=== PATIENT | female | born 1965 | race African-American/Black ===

== ENCOUNTER 2017-03-04 10:44 | Emergency (ER) | payer OTHER ==
[~2017-03-04 10:44] MED LIST: MOTI25CH PO; ONDA1TAB16 PO
[2017-03-04 10:45] VITALS: BP 153/87; PULSE 82; RESP 17; TEMP 98.3; O2SAT 97
--- NOTE | 2017-03-04 11:38 | PD ---
HPI Chief Complaint: Skin Problem Time Seen by Provider: 11:38 Travel History International Travel<30 days: No Contact w/Intl Traveler<30days: No Traveled to known affect area: No History of Present Illness HPI 52 YO female is the ED for evaluation of possible allergic reaction. Patient underwent breast implant exchange at [facility] [place] last week. She states that she is having blistering and irritation in the areas where she is taped. She denies fevers, chills, nausea, vomiting. She has follow up with her surgeon on 04/08. PFSH Past Medical History Tubal Ligation: Yes Social History Alcohol Use: No Tobacco Use: No Substance Use: No Allergies-Medications (Allergen,Severity, Reaction): Coded Allergies: Penicillin (Verified Allergy, Severe, Shortness of Breath, 10/13/15) Pineapple (Verified Allergy, Severe, 03/04/17) Influenza Virus Vaccine (Verified Allergy, Unknown, HIVES, 03/04/17) Reported Meds & Prescriptions Reported Meds & Active Scripts Active Reported Amoxicillin 125 Mg Chew 125 Mg CHEW TID Oxycodone-Acetaminophen 5-325 mg Tab 1 Tab PO Q4H PRN Review of Systems Except as stated in HPI: all other systems reviewed are Neg Physical Exam Narrative GENERAL: Well-nourished, well-developed black female in no acute distress. SKIN: Focused skin assessment warm/dry. There is a bulky dressing over the bilateral breasts. There are several adhesive strips which were removed. There is mild irritation under the adhesive. There are one or 2 subcentimeter blisters without signs of infection. There are 2 approximate 3 cm incisions in the from mammary fold. Well healing without drainage or signs of infection. HEAD: Normocephalic. EYES: No scleral icterus. No injection or drainage. NECK: Supple, trachea midline. No JVD or lymphadenopathy. CARDIOVASCULAR: Regular rate and rhythm without murmurs, gallops, or rubs. RESPIRATORY: Breath sounds equal bilaterally. No accessory muscle use. GASTROINTESTINAL: Abdomen soft, non-tender, nondistended. MUSCULOSKELETAL: No cyanosis, or edema. BACK: Nontender without obvious deformity. No CVA tenderness. Data Data Last Documented VS Vital Signs Date Time Temp Pulse Resp B/P Pulse Ox O2 Delivery O2 Flow Rate FiO2 03/04/17 10:45 98.3 82 17 153/87 97 MDM Medical Decision Making Medical Screen Exam Complete: Yes Emergency Medical Condition: Yes Differential Diagnosis adhesive allergy versus wound recheck versus post operative complication versus other Narrative Course 52 YO female is the ED for evaluation of possible allergic reaction. Patient underwent breast implant exchange at the [facility] in [place] last week. Complains of irritation in the areas where she is taped. She denies fevers, chills, nausea, vomiting. Follow up scheduled on 04/08. Vitals reviewed. Physical exam reveals a nontoxic female in no acute distress. She did have a very bulky dressing underneath the breast with Too wrap. There was extensive taping of the wound which was removed. There are absorbent adhesive dressings over the inframammary incisions which were left in place. I did check the wound which is well healing with no signs of irritation to that adhesive. The excess adhesive was cleaned out the patient's skin. A bulky dressing with compressive wraps was reapplied. Special care was taken to ensure that the implants were compressed towards the midline as the patient states that she had lateral pockets that the surgeon was attempting to heal. Patient was instructed to avoid adhesives, we discussed wound care of the small blisters. She is stable and discharged for follow-up with her surgeon. 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 Keep blisters clean and covered. Apply small amount of Neosporin ointment if desired. Follow-up with the general surgeon on Sunday as planned. Return to the ED for any urgent or emergent medical condition. Disposition: 01 DISCHARGE HOME Condition: Stable Parvin Black Mar 04, 2017 11:38
[2017-03-04] MEDS ORDERED: OXYC1TAB63 PO (11:40)
[2017-03-04] MEDS ORDERED: AMOX125C CHEW (11:40)
== END 2017-03-04 12:07 | disposition home or self-care (01) ==
LOC: NEPD 10:44
DX: T78.49XA Other allergy, initial encounter (principal); Z98.890 Other specified postprocedural states; X58.XXXA Exposure to other specified factors, initial encounter
CPT/HCPCS: 99282